=== PATIENT | male | born 1960 | race Caucasian/White ===

== ENCOUNTER → 2024-04-02 08:09 | Outpatient (REF) | payer MEDICARE, SELFPAY ==
[2024-04-02 08:56] LABS: Hematocrit 39.1 % (39.0-52.0); Hemoglobin 13.9 g/dL (13.0-18.0); Mean Corp Hgb Conc. 35.5 g/dL (33.0-37.0); Mean Corpuscular Volume 95.6 fL (80.0-94.0); Mean Platelet Volume 9.6 fL (7.4-10.4); Platelet Count 172 10^3/uL (130-400); Red Blood Cell Count 4.09 10^6/uL (4.70-6.10); Red Cell Dist. Width 11.4 % (11.5-14.5); White Blood Cell Count 6.4 10^3/uL (4.8-10.8)
[2024-04-02 09:13] LABS: ALT (SGPT) 44 U/L (0-50); AST (SGOT) 51 U/L (17-59); Albumin 4.6 g/dl (3.5-5.0); Alkaline Phosphatase 84 U/L (38-126); Blood Urea Nitrogen 15 mg/dl (9-20); Calcium 9.2 mg/dl (8.4-10.2); Carbon Dioxide 32 mmol/L (22-30); Chloride 100 mmol/L (98-107); Glucose 103 mg/dl (70-99); Potassium 3.9 mmol/L (3.5-5.1); Sodium 142 mmol/L (135-145); Total Bilirubin 0.8 mg/dl (0.2-1.3); Total Protein 6.9 g/dl (6.3-8.2); eGFR > 60.00
== END ==
LOC: SDSPAT 08:09
PROVIDERS: ATTENDING PHYSICIAN Orthopaedic Surgery Orthopaedic Surgery of the Spine; FAMILY PHYSICIAN Family Medicine
DX: Z01.818 Encounter for other preprocedural examination (principal)
CPT/HCPCS: 36415; 80053; 85027; 87070; 93005

== ENCOUNTER 2024-04-10 06:22 | Day surgery (SDC) | payer MEDICARE, SELFPAY ==
[2024-04-02 12:27] VITALS: BMI 25.9
[2024-04-02 15:30] VITALS: BMI 25.9
[2024-04-10] VITALS (17 sets, daily range): BP systolic 115–166; BP diastolic 66–94; BMI 25.2
[2024-04-10] MEDS: TYLENOL 1000 MG PO ×2 (10:17→18:33)
[2024-04-10] MEDS: LYRICA 150 MG PO (10:17)
[2024-04-10] MEDS: SKELAXIN 800 MG PO (10:17)
[2024-04-10] MEDS: CELEBREX 200 MG PO (10:17)
[2024-04-10] MEDS: NORMOSOL-R/PLASMALYTE-A 1000 IV ×2 (10:33→18:33)
[2024-04-10] MEDS: DILAUDID 0.25 MG IV ×2 (15:31→15:49)
--- NOTE | 2024-04-10 17:20 | PTCARENOTE ---
pt received from PACU in bed. pt is drowsy but arousable, AAOx3. lower back dressing, 4x4 w/ tegaderm is c/d/i. pt c/o of pain of 8/10. pt oriented to room and nursing care.
[2024-04-10] MEDS: ROXICODONE 10 MG PO (18:20)
[2024-04-10] MEDS: LIPITOR 20 MG PO (18:32)
[2024-04-10] MEDS: ULTRAM 50 MG PO ×2 (18:33→22:12)
[2024-04-10] MEDS: COLACE 100 MG PO (20:29)
[2024-04-10] MEDS: ANCEF 5 IV (20:29)
[2024-04-10] MEDS: ROXICODONE 5 MG PO (20:56)
[2024-04-10] MEDS: SENOKOT PO (21:07)
[2024-04-10] MEDS: LYRICA 75 MG PO (22:12)
[2024-04-10] MEDS: MELATONIN 5 MG PO (22:12)
[2024-04-10] MEDS: KLONOPIN 1 MG PO (22:12)
[2024-04-11] MEDS: TYLENOL PO (00:54)
[2024-04-11] MEDS: ULTRAM 50 MG PO ×3 (01:21→10:05)
[2024-04-11 03:30] VITALS: BP 113/58
[2024-04-11] MEDS: NORMOSOL-R/PLASMALYTE-A 1000 IV (03:43)
[2024-04-11] MEDS: ANCEF 5 IV (03:44)
--- NOTE | 2024-04-11 04:16 | DOWNTIME ---
There was a [place] [employer] Downtime on 04/11/2024 from 0200 to 04/11/2024 at 0325 . Downtime documentation of patient's care, including medication administrations, has been reconciled in the electronic record per guidelines. Refer to the
patient's paper chart under the miscellaneous tab to see printed paper medication records and downtime forms.
[2024-04-11] MEDS: TYLENOL 1000 MG PO (06:16)
[2024-04-11 06:23] LABS: Hematocrit 36.7 % (39.0-52.0); Hemoglobin 12.7 g/dL (13.0-18.0)
[2024-04-11 06:47] LABS: Blood Urea Nitrogen 16 mg/dl (9-20); Carbon Dioxide 30 mmol/L (22-30); Chloride 103 mmol/L (98-107); Estimated Creatinine Clearance 80 ml/min; Glucose 152 mg/dl (70-99); Sodium 139 mmol/L (135-145); eGFR > 60.00
[2024-04-11 07:05] VITALS: BP 138/68
[2024-04-11] MEDS: ROXICODONE 10 MG PO (07:21)
[2024-04-11] MEDS: COLACE 100 MG PO (08:07)
[2024-04-11] MEDS: LIPITOR 20 MG PO (08:07)
[2024-04-11] MEDS: SENOKOT 17.2 MG PO (08:07)
[2024-04-11] MEDS: PROTONIX 40 MG PO (08:12)
[2024-04-11 09:35] VITALS: BP 126/73; PULSE 72; O2SAT 97
[2024-04-11] MEDS: LYRICA 75 MG PO (10:05)
--- NOTE | 2024-04-11 10:49 | CM ---
Met with pt and his at bedside
Reports lives with his in a 2 story home; 2 steps to enter, 13 steps to 2nd fl. Bathroom on FF
Independent with ADL's. active, ambulates without device
DME - rolling walker, single point cane, walking stick
SNF/HH- denies past hx
Has ride at discharge
PCP - Clive Chris
Pharm - [facility]
PT eval pending
Plan - anticipate home no needs
--- NOTE | 2024-04-11 10:56 | W.PN.ORTHO ---
Today's Communication / Plan
-
Await PT recs. Did well w/ OT today.
D/c later today if remaining clinically stable.
Assessment
.
Distal Motor Intact: Yes
Dressing:
Clean, dry and intact.
Assessment:
Lumbar anterolisthesis with radiculopathy s/p L3-L5 PSF w/ Dr Singh 04/10/24
- s/p L4-L5 fusion by Dr Lazo 2014
DVT prophylaxis - b/l SCDs/TEDs
Asthma per records - O2 stable on RA
GERD - Protonix during admission
Ambulatory dysfunction - on fall precautions
Fibromyalgia - pain well controlled by POD 1
HLD
H/o H Pylori 2013 - treated
Migraines
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
OA s/p R BRIAN, 2016, and L BRIAN 2018
C3-C6 compression fractures
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
Hypogonadism
Narcolepsy
MSSA + sebaceous cyst R scapula, treated with Keflex
Anxiety
Plan
.
Surgery / Date: L3-L5 PSF w/ Dr Singh 04/10/24
DVT Prophylaxis: Other (b/l SCDs/TEDs)
Activity:
Out of bed.
PT/OT
Discharge Plan: Home
Subjective
.
.:
Patient resting comfortably in his bed.
Low back pain reportedly tolerable w/ current pain meds.
Denies any other new significant complaints.
AM labs stable.
Eager for potential d/c today.
Vital Signs and Labs
.
Vital Signs and Labs:
Lab Results
04/11/24 04:57
04/11/24 04:57
Temp Pulse Resp BP Pulse Ox
97.3 F 77 18 113/58 98
04/11/24 03:30 04/11/24 03:30 04/11/24 03:30 04/11/24 03:30 04/11/24 03:30
Physical Exam
-
HEENT: No pallor, cyanosis, or jaundice. Throat clear.
NECK: Supple. No JVD.
RESPIRATORY: Lungs clear to auscultation.
CVS: S1, S2 normal. RRR.�
ABDOMEN: Soft, non-tender. No distension.
EXTREMITIES: Strength equal, no calf pain with palpation/dorsiflexion. Calves soft.
[employer]IV[employer]IAN: AOx3. No focal deficits. tool room machinist grossly intact
[2024-04-11 11:00] VITALS: BP 136/74
--- NOTE | 2024-04-11 11:08 | W.DS.TRANS ---
DC Summary - Machine Operator Farmworker
-
Discharge Instructions:
Sleep Apnea Risk Low
Discharge Diagnosis/Procedures Lumbar anterolisthesis with radiculopathy s/p L3
-L5 posterior fusion w/ Singh 04/10/24
Diet Regular
Activity As tolerated
Additional Activity No heavy lifting >10 lbs
Driving Restrictions Not until seen by your Dr
Bathing Restrictions OK to shower in 4 days
Instructions:
Stand-Alone Forms:
Changes to Home Medications: Yes
Discharge Medications:
DC Medications w/original date entered in [employer]
L.acidoph,paracasei,B.animalis 10 billion cell capsule 1 ea PO DAILY 05/20/15
armodafinil 150 mg tablet (Nuvigil) 50 mg PO DAILY 07/04/18
ascorbic acid (vitamin C) 500 mg tablet (Vitamin C) 500 mg PO DAILY 07/04/18
atorvastatin 20 mg tablet 20 mg PO DAILY 07/04/18
clonazepam 1 mg tablet 1 mg PO HS 07/04/18
cyanocobalamin (vitamin B-12) 1,000 mcg tablet 500 mcg PO DAILY 07/04/18
fish oil-dha-epa 1,200 mg-144 mg-216 mg capsule 1 ea PO DAILY 07/04/18
melatonin 3 mg tablet 5 mg PO HS 07/04/18
Tumeric 1 dose PO DAILY 04/02/24
cholecalciferol (vitamin D3) 25 mcg (1,000 unit) chewable tablet (Vitamin D3) 25 mcg PO DAILY 04/02/24
testosterone 1 pump topical DAILY 04/02/24
zinc gluconate 50 mg tablet 50 mg PO DAILY 04/02/24
acetaminophen 500 mg tablet (Tylenol Extra Strength) 1,000 mg (2 x 500 mg) PO Q6H #30 tabs 04/11/24
cephalexin 500 mg tablet 500 mg PO Q6H #20 tabs 04/11/24
docusate sodium 100 mg capsule 100 mg PO BID #30 caps 04/11/24
metaxalone 800 mg tablet 800 mg PO BID PRN muscle spasms #1 tab 04/11/24
ondansetron HCl 4 mg tablet 4 mg PO Q6H PRN nausea and vomiting #30 tabs 04/11/24
oxycodone 5 mg tablet 5 - 10 mg (1 - 2 x 5 mg) PO Q6H PRN moderate-severe pain #30 tabs 04/11/24
pregabalin 75 mg capsule 75 mg PO BID neuropathic pain #15 caps 04/11/24
sennosides 8.6 mg tablet (Senna Laxative) 17.2 mg (2 x 8.6 mg) PO BID #30 tabs 04/11/24
Home Medication Changes
acetaminophen 500 mg tablet (Tylenol Extra Strength) 1,000 mg (2 x 500 mg) PO Q6H #30 tabs 04/11/24
cephalexin 500 mg tablet 500 mg PO Q6H #20 tabs 04/11/24
docusate sodium 100 mg capsule 100 mg PO BID #30 caps 04/11/24
metaxalone 800 mg tablet 800 mg PO BID PRN muscle spasms #1 tab 04/11/24
ondansetron HCl 4 mg tablet 4 mg PO Q6H PRN nausea and vomiting #30 tabs 04/11/24
oxycodone 5 mg tablet 5 - 10 mg (1 - 2 x 5 mg) PO Q6H PRN moderate-severe pain #30 tabs 04/11/24
pregabalin 75 mg capsule 75 mg PO BID neuropathic pain #15 caps 04/11/24
sennosides 8.6 mg tablet (Senna Laxative) 17.2 mg (2 x 8.6 mg) PO BID #30 tabs 04/11/24
Pending Results: No
[2024-04-11 11:10] VITALS: BP 140/71; PULSE 88; O2SAT 99
== END 2024-04-11 12:43 | disposition home or self-care (01) ==
LOC: SDS 06:22
PROVIDERS: Physician Assistant Medical; ATTENDING PHYSICIAN Orthopaedic Surgery Orthopaedic Surgery of the Spine
DX: M48.061 Spinal stenosis, lumbar region without neurogenic claudication (principal); M43.16 Spondylolisthesis, lumbar region
CPT/HCPCS: 22612; 20930; C1776; 72100; 76000; 80048; 85014; 85018; 97116; 97162; 97166; 97530